=== PATIENT | male | born 1980 | race Caucasian/White ===

== ENCOUNTER 2018-10-20 10:05 | Emergency (ER) | payer BC, OTHER ==
[~2018-10-20] VITALS: Ht 182.9 cm; Wt 115.9 kg
[~2018-10-20 10:05] MED LIST: CYCL10TA PO; IBUP-1114 PO; MEDR4PAK PO; METH54TA2 PO
[2018-10-20] MEDS ORDERED: ONDANSETRON 4MG/2ML VIAL (J2405) IV ONE (10:30)
[2018-10-20] MEDS ORDERED: NS 1,000 ML IV ONE (10:30)
[2018-10-20 11:03] LABS: BASO % 0.3 % (0.0-1.0); HEMOGLOBIN 15.6 g/dl (13.5-17.5); LYMPH # 0.9 10^3/uL (1.5-4.5); LYMPH % 8.2 % (24.0-44.0); MEAN CORPUSCULAR HEMOGLOBIN 30.7 pg (27.0-33.0); MEAN CORPUSCULAR HGB CONC 36.3 g/dl (32.0-36.5); MEAN CORPUSCULAR VOLUME 84.6 fl (80.0-96.0); MONO # 0.4 10^3/uL (0.0-0.8); MONO % 3.2 % (0.0-5.0); NEUTROPHILS # 9.5 10^3/uL (1.8-7.7); NEUTROPHILS % 87.7 % (36.0-66.0); PLATELET COUNT, AUTOMATED 223 10^3/uL (150-450); RED BLOOD COUNT 5.08 10^6/uL (4.30-6.10); WHITE BLOOD COUNT 10.8 10^3/uL (4.0-10.0)
[2018-10-20 11:41] LABS: ALBUMIN 4.4 GM/DL (3.2-5.2); ALT/SGPT 40 U/L (12-78); AMYLASE 45 U/L (25-115); BILIRUBIN,DIRECT 0.1 MG/DL (0.0-0.2); BILIRUBIN,TOTAL 0.8 MG/DL (0.2-1.0); BLOOD UREA NITROGEN 10 MG/DL (7-18); CALCIUM LEVEL 9.6 MG/DL (8.5-10.1); CARBON DIOXIDE LEVEL 26 MEQ/L (21-32); CHLORIDE LEVEL 106 MEQ/L (98-107); CREATININE FOR GFR 0.95 MG/DL (0.70-1.30); GLOMERULAR FILTRATION RATE > 60.0 (>60); GLUCOSE, FASTING 142 MG/DL (70-100); LIPASE 157 U/L (73-393); POTASSIUM SERUM 4.3 MEQ/L (3.5-5.1); SODIUM LEVEL 140 MEQ/L (136-145); TOTAL PROTEIN 7.4 GM/DL (6.4-8.2)
[2018-10-20] MEDS ORDERED: METOCLOPRAMIDE INJ 10MG/2ML VIAL (J2765) IV ONE (12:00)
[2018-10-20] MEDS ORDERED: ZOFR4TAB14 PO (12:36)
[2018-10-20 12:51] VITALS: BP 123/64
== END 2018-10-20 12:52 | disposition home or self-care (01) ==
LOC: M ED 10:05
DX: K52.9 Noninfective gastroenteritis and colitis, unspecified (principal); M54.9 Dorsalgia, unspecified; Z79.899 Other long term (current) drug therapy
CPT/HCPCS: 80048; 80076; 82150; 83690; 85025; 96361; 96374; 96375; 99284; J2405; J2765

== ENCOUNTER → 2019-02-03 | Outpatient (REF) | payer BC ==
[~2019-02-03] MED LIST changes: +ZOFR4TAB14 PO
== END ==
LOC: M SMT 12:56
PROVIDERS: ATTEND Urology
DX: Z30.2 Encounter for sterilization (principal)

== ENCOUNTER 2022-10-23 22:37 | Emergency (ER) | payer BC ==
[~2022-10-23] VITALS: Ht 182.9 cm; Wt 120.3 kg
[~2022-10-23 22:37] MED LIST changes: +CYCL-707 PO; -CYCL10TA PO
[2022-10-24 02:14] VITALS: BP 150/100
[2022-10-24 03:10] LABS: BASO % 0.1 % (0.0-1.0); HEMATOCRIT 44.6 % (42.0-52.0); HEMOGLOBIN 16.2 g/dl (13.5-17.5); LYMPH # 1.2 10^3/uL (1.5-5.0); LYMPH % 7.6 % (24.0-44.0); MEAN CORPUSCULAR HEMOGLOBIN 31.3 pg (27.0-33.0); MEAN CORPUSCULAR HGB CONC 36.3 g/dl (32.0-36.5); MEAN CORPUSCULAR VOLUME 86.1 fl (80.0-96.0); MONO # 0.5 10^3/uL (0.0-0.8); MONO % 3.1 % (2.0-8.0); NEUTROPHILS # 14.2 10^3/uL (1.5-8.5); NEUTROPHILS % 88.9 % (36.0-66.0); PLATELET COUNT, AUTOMATED 273 10^3/uL (150-450); RED BLOOD COUNT 5.18 10^6/uL (4.30-6.10)
[2022-10-24 03:38] LABS: LIPASE 72 U/L (12-53)
[2022-10-24 03:40] LABS: ALBUMIN 4.9 G/DL (3.2-5.2); ALKALINE PHOSPHATASE 68 U/L (46-116); ALT/SGPT 28 U/L (7.0-40); AST/SGOT 24 U/L (<34); BILIRUBIN,DIRECT 0.2 MG/DL (<0.4); BILIRUBIN,TOTAL 0.9 MG/DL (0.3-1.2); BLOOD UREA NITROGEN 13 MG/DL (9-23); CALCIUM LEVEL 10.2 MG/DL (8.5-10.1); CARBON DIOXIDE LEVEL 22 MMOL/L (20-31); CHLORIDE LEVEL 103 MMOL/L (98-107); CK-MB VALUE MASS 1.8 NG/ML (<3.6); CREATININE FOR GFR 0.73 MG/DL (0.70-1.30); GLOMERULAR FILTRATION RATE > 60.0 (>60); GLUCOSE, FASTING 150 MG/DL (60-100); POTASSIUM SERUM 4.1 MMOL/L (3.5-5.1); SODIUM LEVEL 137 MMOL/L (136-145)
[2022-10-24 03:42] LABS: CPK CREATINE PHOSPHOKINASE 315 U/L (46-171); MB/CK RELATIVE INDEX 0.57 (< OR =4)
== END 2022-10-24 04:00 | disposition left against medical advice (07) ==
LOC: M ED 22:37
DX: Z53.21 Procedure and treatment not carried out due to patient leaving prior to being seen by health care provider (principal)

== ENCOUNTER → 2022-11-18 | Outpatient (CLI) | payer BC ==
[2022-11-18 08:21] LABS: LIPASE 66 U/L (12-53)
[2022-11-18 08:23] LABS: AMYLASE 78 U/L (30-118)
[2022-11-18 08:27] LABS: C REACTIVE PROTEIN QUANTITATIV < 0.40 MG/DL (<1.0)
== END ==
LOC: M LAB 07:08
PROVIDERS: ATTEND Nurse Practitioner Family
DX: R11.2 Nausea with vomiting, unspecified (principal); R19.7 Diarrhea, unspecified

== ENCOUNTER 2025-01-27 22:39 | Emergency (ER) | payer BC ==
[~2025-01-27] VITALS: Ht 182.9 cm; Wt 113.4 kg
[2025-01-27 22:45] VITALS: TEMP 96.5
[2025-01-27] MEDS: METOCLOPRAMIDE INJ 10MG/2ML VIAL IV ONE (23:59)
[2025-01-28] MEDS: KETOROLAC 30 MG/ML 1ML VIAL IV ONE
[2025-01-28] MEDS ORDERED: ISOVUE-370 76% 100ML VIAL As Ordered ONE (00:05)
[2025-01-28 00:25] LABS: BASO # 0.1 10^3/uL (0.0-0.2); BASO % 0.4 % (0.0-1.0); EOS % 0.1 % (0.0-3.0); HEMATOCRIT 43.7 % (42.0-52.0); HEMOGLOBIN 16.3 g/dl (13.5-17.5); LYMPH # 1.4 10^3/uL (1.5-5.0); LYMPH % 11.1 % (24.0-44.0); MEAN CORPUSCULAR HEMOGLOBIN 31.7 pg (27.0-33.0); MONO # 0.6 10^3/uL (0.0-0.8); MONO % 4.7 % (2.0-8.0); NEUTROPHILS # 10.7 10^3/uL (1.5-8.5); NEUTROPHILS % 83.3 % (36.0-66.0); PLATELET COUNT, AUTOMATED 223 10^3/uL (150-450); RED BLOOD COUNT 5.14 10^6/uL (4.30-6.10); WHITE BLOOD COUNT 12.8 10^3/uL (4.0-10.0)
[2025-01-28 00:28] LABS: MEAN CORPUSCULAR HGB CONC 37.3 g/dl (32.0-36.5)
[2025-01-28 00:36] LABS: LIPASE 61 U/L (12-53)
[2025-01-28 00:37] LABS: ETHYL ALCOHOL (ETHANOL) < 0.003 % (0.000-0.010)
[2025-01-28 00:38] LABS: ALBUMIN 4.7 G/DL (3.2-5.2); ALKALINE PHOSPHATASE 67 U/L (40-129); ALT/SGPT 27 U/L (7.0-40); AST/SGOT 19 U/L (<34); BILIRUBIN,DIRECT 0.3 MG/DL (<0.4); BILIRUBIN,TOTAL 1.1 MG/DL (0.3-1.2); BLOOD UREA NITROGEN 13 MG/DL (9-23); CARBON DIOXIDE LEVEL 22 MMOL/L (20-31); CHLORIDE LEVEL 103 MMOL/L (98-107); CREATININE FOR GFR 0.83 MG/DL (0.70-1.30); GLOMERULAR FILTRATION RATE > 90.0 (>60); GLUCOSE, FASTING 178 MG/DL (60-100); POTASSIUM SERUM 4.2 MMOL/L (3.5-5.1); SODIUM LEVEL 138 MMOL/L (136-145); TOTAL PROTEIN 7.5 G/DL (5.7-8.2)
[2025-01-28] MEDS ORDERED: NS 0.9% IV ONE (00:40)
[2025-01-28] MEDS ORDERED: [UNRECOGNIZED DRUG - OTHER] IV ONE (00:40)
[2025-01-28] MEDS: PROMETHAZINE 25MG/ML 1ML VIAL IV ONE (00:53)
[2025-01-28] MEDS: NS (Normal Saline) 0.9% 2,000 ML IV ONE (01:05)
[2025-01-28 01:13] LABS: AMPHETAMINES LEVEL URINE NEGATIVE (NEGATIVE); BARBITURATES URINE NEGATIVE (NEGATIVE); BENZODIAZEPINES URINE NEGATIVE (NEGATIVE); COCAINE METABOLITE URINE NEGATIVE (NEGATIVE); METHADONE URINE NEGATIVE (NEGATIVE)
[2025-01-28 01:14] LABS: OPIATES URINE NEGATIVE (NEGATIVE); PHENCYCLIDINE URINE NEGATIVE (NEGATIVE)
[2025-01-28 01:15] LABS: CANNABINOIDS URINE POSITIVE (NEGATIVE)
[2025-01-28 03:18] VITALS: BP 153/87
[2025-01-28 04:39] VITALS: O2SAT 99
== END 2025-01-28 04:55 | disposition home or self-care (01) ==
LOC: M ED 22:39
DX: R11.15 Cyclical vomiting syndrome unrelated to migraine (principal); Q53.10 Unspecified undescended testicle, unilateral
CPT/HCPCS: 74177; 80047; 80048; 80076; 80307; 82077; 83605; 83690; 85025; 93041; 96374; 96375; 99285; J1885; J2550; J2765; Q9967